=== PATIENT | male | born 1965 | race Caucasian/White ===

== ENCOUNTER 2023-02-28 17:00 | Outpatient (CLI) | payer OTHER | END 2023-02-28 17:01 | disposition home or self-care (01) | LOC: SLEEPLAB 17:00 | PROVIDERS: ATTEND Nurse Practitioner | DX: G47.33 Obstructive sleep apnea (adult) (pediatric) (principal); E66.9 Obesity, unspecified; R06.83 Snoring; I10 Essential (primary) hypertension; G47.00 Insomnia, unspecified; Z68.42 Body mass index [BMI] 45.0-49.9, adult | CPT/HCPCS: 95800 ==

== ENCOUNTER 2023-05-24 16:00 | Outpatient (CLI) | payer OTHER | END 2023-05-24 16:01 | disposition home or self-care (01) | LOC: SLEEPLAB 16:00 | PROVIDERS: ATTEND Nurse Practitioner | DX: G47.33 Obstructive sleep apnea (adult) (pediatric) (principal); I10 Essential (primary) hypertension; E66.9 Obesity, unspecified; R06.83 Snoring; R09.02 Hypoxemia | CPT/HCPCS: 95811 ==